=== PATIENT | male | born 1980 | race African-American/Black ===

== ENCOUNTER 2018-09-04 06:07 | Emergency (ER) | payer SELFPAY ==
[2018-09-04 06:37] VITALS: BMI 26.6
--- NOTE | 2018-09-04 07:00 | PDOC ---
History of Present Illness <Kathya Armas Herminia - Last Filed: 09/04/18 09:54> - History of Present Illness Initial Comments: 09/04/18 08:19 The patient is a 38 year old male with no significant PMH who presents for evaluation of chest pain and shortness of breath. The patient reports a several day history of poorly described sternal chest pain with associated shortness of breath prompting his presentation to the ED for further evaluation. The patient states that the pain is worse with inspiration and lying in certain positions. He notes that the shortness of breath is secondary to pain and denies any dyspnea on exertion. 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 He otherwise denies fevers, chills, nausea, vomiting, abdominal pain, or changes with urination or bowel movements. <Cesario Peraza - Last Filed: 09/04/18 09:57> - General Chief Complaint: Chest Pain Stated Complaint: CHEST PAIN/DIFF BREATHING Time Seen by Provider: 09/04/18 06:59 Past History <Jana Armaskelsey Hope - Last Filed: 09/04/18 09:54> - Past Medical History COPD: No Other medical history: denies - Immunization History Td Vaccination: Yes TDAP Vaccination: Yes Immunization Up to Date: Yes - Suicide/Smoking/Psychosocial Hx Smoking History: Never smoked Have you smoked in the past 12 months: No Hx Alcohol Use: No Drug/Substance Use Hx: No <Cesario Peraza - Last Filed: 09/04/18 09:57> - Past Medical History Allergies/Adverse Reactions: Allergies Allergy/AdvReac Type Severity Reaction Status Date / Time No Known Allergies Allergy Verified 09/04/18 06:18 Home Medications: Ambulatory Orders NK [No Known Home Medication] 09/04/18 Review of Systems - Review of Systems Comments:: 09/04/18 08:23 Constitutional: No fevers, chills, fatigue, malaise HEENT: No Rhinorrhea, nasal congestion, visual changes Cardiovascular: Chest pain. No syncope, palpitations, lightheadedness Respiratory: SOB. No Cough, Hemoptysis, Gastrointestinal: No Abdominal pain, Nausea, Vomiting, Constipation, Diarrhea, Melena Genitourinary: No Dysuria, Frequency, Urgency, Hesitancy, Hematuria, Flank pain Musculoskeletal: No Myalgia, arthralgia Skin: No rashes, itching, bruising, pallor Neurologic: No Headache, Dizziness, Numbness, Weakness, or Tingling Psychiatric: No Hallucinations. No SI or HI <Cesario Peraza - Last Filed: 09/04/18 09:57> *Physical Exam - Vital Signs Last Vital Signs Temp Pulse Resp BP Pulse Ox 98.8 F 82 18 121/78 100 09/04/18 09:19 09/04/18 09:19 09/04/18 09:19 09/04/18 09:19 09/04/18 09:19 <Kathya Armas - Last Filed: 09/04/18 09:54> - Vital Signs Last Vital Signs Temp Pulse Resp BP Pulse Ox 97.8 F 88 20 101/68 99 09/04/18 06:07 09/04/18 06:07 09/04/18 06:07 09/04/18 06:07 09/04/18 06:07 - Physical Exam Comments: 09/04/18 08:23 General Appearance: Nourished. No Apparent Distress HEENT: No Pharyngeal Erythema, Tonsillar Exudate, Tonsillar Erythema Neck: No Cervical Lymphadenopathy Respiratory/Chest: Lungs Clear, Normal Breath Sounds. No Crackles, Rales, Rhonchi, Wheezing Cardiovascular: Regular Rhythm, Regular Rate. No Murmur, Gallops, Rubs Gastrointestinal/Abdominal: Normal Bowel Sounds, Soft. No Guarding, Rebound, Tenderness Musculoskeletal: No CVA Tenderness Extremity: Normal Capillary Refill Integumentary: Normal Color, Dry, Warm Neurologic: Fully Oriented, Alert, Normal Mood/Affect, Normal Response, <Cesario Peraza - Last Filed: 09/04/18 09:57> Heart Score/ECG Review #1 ECG reviewed & interpreted by me at: 08:23 General ECG Interpretation: Sinus Rhythm, Normal Rate, Normal Intervals, No acute ischemic changes <Cesario Peraza - Last Filed: 09/04/18 09:57> ED Treatment Course - LABORATORY CBC & Chemistry Diagram: 09/04/18 07:40 09/04/18 07:40 - ADDITIONAL ORDERS Additional order review: Laboratory Results 09/04/18 09/04/18 09/04/18 08:17 07:40 07:40 D-Dimer 262 Sodium 140 Potassium 4.2 Chloride 106 Carbon Dioxide 28 Anion Gap 6 L BUN 11.5 Creatinine 1.1 Est GFR (CKD-EPI)AfAm 99.57 Est GFR (CKD-EPI)NonAf 85.91 Random Glucose 97 Calcium 9.0 Total Bilirubin 0.6 AST 14 L ALT 14 Alkaline Phosphatase 73 Creatine Kinase 277 Creatine Kinase Index 0.3 CK-MB (CK-2) 1.1 Troponin I < 0.02 Total Protein 7.6 Albumin 4.0 09/04/18 07:40 RBC 4.35 MCV 91.3 MCHC 33.9 RDW 12.2 MPV 8.9 Neutrophils % 66.5 Lymphocytes % 22.6 Monocytes % 9.4 Eosinophils % 1.2 Basophils % 0.3 - Medications Given in the ED: ED Medications Discontinued Medications Generic Name Dose Route Start Last Admin Trade Name Freq PRN Reason Stop Dose Admin Acetaminophen 1,000 mg 09/04/18 07:09 09/04/18 07:44 Ofirmev Injection - IVPB 09/04/18 07:10 1,000 mg ONCE ONE Administration <Kathya Armas - Last Filed: 09/04/18 09:54> - LABORATORY CBC & Chemistry Diagram: 09/04/18 07:40 09/04/18 07:40 <Cesario Peraza - Last Filed: 09/04/18 09:57> Medical Decision Making - Medical Decision Making 09/04/18 08:24 The patient is a 38 year old male with no significant PMH who presents for evaluation of chest pain and shortness of breath. Differential includes but is not limited to: ACS, Musculoskeletal, PE, Infectious, Metabolic Derangement. Given the patient's history and physical exam, we will obtain a cbc, cmp, troponin, d-dimer, chest plain film, ekg to evaluate further. We will treat with tylenol and continue to monitor and reassess while here in the ED. 09/04/18 09:57 CBC, cmp, troponin, d-dimer were unremarkable. Chest plain film was unremarkable as read by our radiologist. We are comfortable discharging the patient home in stable condition. Patient and family made aware of impression and plan, return precautions discussed including but not limited to worsening pain or symptoms, fevers, or signs of infection, chest pain, respiratory distress, inability to tolerate oral intake, dehydration, syncope, or neurologic changes. The patient is to follow up with PMD and specialist as recommended within 1 week, follow up information provided and the patient will call for an appointment. The patient is to take medications as instructed for duration of time and continue with supportive care, avoid triggers and precipitants. Patient is safe for outpatient follow-up. <Cesario Peraza - Last Filed: 09/04/18 09:57> *DC/Admit/Observation/Transfer - Discharge Dispostion Decision to Admit order: No <Kathya Armas - Last Filed: 09/04/18 09:54> <Cesario Peraza - Last Filed: 09/04/18 09:57> Diagnosis at time of Disposition: Chest pain Qualifiers: Chest pain type: unspecified Qualified Code(s): R07.9 - Chest pain, unspecified - Discharge Dispostion Disposition: HOME Condition at time of disposition: Stable - Referrals Referrals: Tomasz Ravi MD [Staff Physician] - Arnoldo Evans MD [Staff Physician] - Souleymane Daley MD [Staff Physician] - [facility] [Provider Group] [facility] [Provider Group] - Patient Instructions Printed Discharge Instructions: DI for Chest Pain Additional Instructions: 1) Please follow-up with your primary care doctor in the next 2-3 days. Please call tomorrow to schedule a follow up appointment. If you cannot follow up with your doctor within 1 week please return to the Emergency Department for any urgent issues. 2) Your laboratory / imaging results were normal here in the ER. 3) If you have any worsening of symptoms or any other concerns please return to the ER immediately. Return if worsening symptoms including fevers, headache, vomiting, visual or hearing disturbances, abdominal pain, chest pain, shortness of breath, syncope, dehydration, inability to take things by mouth/vomiting, altered mental status, or worsening concerning symptoms. 4) Please continue taking your home medications as directed. Side effects may include upset stomach, abdominal pain, vomiting, or diarrhea. Do not drink alcohol with your medications.
[2018-09-04] MEDS ORDERED: ACETAMINOPHEN 1000 MG/100 ML VIAL (NON FORMULARY) IVPB ONE (07:09)
[2018-09-04] MEDS ORDERED: ACETAMINOPHEN INJECTION 100 ML IVPB ONE (07:45)
--- NOTE | 2018-09-04 08:03 | PDOC ---
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 NAD, well appearing, EOMI, PERRL, MMM, nl conjunctiva, anicteric; neck supple. no chest wall tenderness, no respiratory distress, lungs clear, RRR, abdomen soft nontender. Back nontender. DAMIAN x4, no focal neuro deficits. No peripheral edema. normal color for ethnicity, WWP. 09/04/18 09:54 - Medical Decision Making 09/04/18 08:02 See HPI for details. Prior notes reviewed, including admissions, discharges and consultations. Vital signs reviewed, wnl. DDX ACS, chest pain NOS, arrhythmia, costochondritis, GERD, PUD, electrolyte/ metabolic derangements, esophageal spasm, PE, dissection. Vital Signs Temp Pulse Resp BP Pulse Ox 97.8 F 88 20 101/68 99 09/04/18 06:07 09/04/18 06:07 09/04/18 06:07 09/04/18 06:07 09/04/18 07:51 laboratory results and imaging reviewed, basic labs and lytes wnl, CXR_no acute chest pathology Cardiac panel_neg trop, reassuring, doubt cardiac dimer neg, doubt PE EKG normal sinus rhythm at 84 bpm, no interval abnormalities, narrow QRS, ST and T wave segments and morphology normal. ED course -symptoms resolved, no cp or sob. comfortable, neuro intact. Pt to be discharged in stable condition. Patientmade aware of clinical impression, treatment recommendations and disposition plan, return precautions discussed (including but not limited to new or persistent/worsening symptoms, pain, fevers, or signs of infection, chest pain, respiratory distress, inability to tolerate oral intake, dehydration, syncope, or neurologic changes) . Follow up with PMD and/or specialist as recommended, follow up information provided, take medications as instructed for duration of time. continue with supportive care, avoid triggers and precipitants. All questions answered to patient's satisfaction and expressed understanding and comfort with this. At the time of discharge, the patient is alert, clinically improved, tolerating po and verbalizes understanding of instructions, satisfied with the care received and felt comfortable with the plan. Patient does not suffer from an acute life- threatening medical condition at this time and is safe for outpatient follow- up. 09/04/18 09:20 09/04/18 09:53 Heart Score/ECG Review #1 ECG reviewed & interpreted by me at: 06:20 General ECG Interpretation: Sinus Rhythm, Normal Rate, Normal Intervals Compared to previous ECG there are: Previous ECG unavail 09/04/18 08:03 EKG normal sinus rhythm at 84 bpm, no interval abnormalities, narrow QRS, ST and T wave segments and morphology normal.
[2018-09-04 08:32] LABS: BILIRUBIN,TOTAL 0.6 mg/dL (0.2-1); BLOOD UREA NITROGEN 11.5 mg/dL (7-18); CREATININE 1.1 mg/dL (0.55-1.3); POTASSIUM 4.2 mmol/L (3.5-5.1); TOT PROT 7.6 g/dl (6.4-8.2)
--- NOTE | 2018-09-04 09:16 | EKG ---
Test Reason : Blood Pressure : / mmHG Vent. Rate : 084 BPM Atrial Rate : 084 BPM P-R Int : 150 ms QRS Dur : 080 ms QT Int : 364 ms P-R-T Axes : 058 038 027 degrees QTc Int : 430 ms NORMAL SINUS RHYTHM NORMAL ECG NO PREVIOUS ECGS AVAILABLE Confirmed by JANICE KANG MD ([id number]) on 09/04/2018 9:16:43 AM Referred By: Confirmed By:JANICE KANG MD
[2018-09-04 09:20] VITALS: BP 121/78; PULSE 82; TEMP 98.8
[2018-09-04 09:40] LABS: BASO % 0.3 % (0-2.0); EOS % 1.2 % (0-4.5); HEMATOCRIT 39.7 % (35.4-49); HEMOGLOBIN 13.4 GM/dL (11.7-16.9); LYMPH % 22.6 % (8-40); MCH 30.9 pg (25.7-33.7); MCHC 33.9 g/dl (32.0-35.9); MEAN CELL VOLUME 91.3 fl (80-96); MEAN PLT VOLUME 8.9 fl (7.5-11.1); MONO % 9.4 % (3.8-10.2); NEUT % 66.5 % (42.8-82.8); PLATELET COUNT 222 K/MM3 (134-434); RBC 4.35 M/mm3 (4.00-5.60); RDW 12.2 % (11.9-15.9); WHITE BLOOD COUNT 8.3 K/mm3 (4.0-10.0)
== END 2018-09-04 10:09 | disposition home or self-care (01) ==
LOC: JER 06:07
PROC: 3E033NZ Introduction of Analgesics, Hypnotics, Sedatives into Peripheral Vein, Percutaneous Approach (ICD-10-PCS; principal; 2018-09-04)
DX: R07.9 Chest pain, unspecified (principal)
CPT/HCPCS: 36415; 71045-TC-FY; 80053; 82550; 82553; 84484; 85025; 85379; 93005; 93010; 99285-25; J0131